=== PATIENT | female | born 1985 | race Caucasian/White ===

== ENCOUNTER 2016-09-05 16:02 | Emergency (ER) | payer MEDICAID ==
--- NOTE | 2016-09-10 16:16 | ER ---
ADMIT: 09/05/2016 RM/LOC: ER [facility] MR#: [id number] [place], [place] [id number] INNA LYNN [address] [place] [address] Emergency Room Report SEX: F AGE: 30 : 1985 DATE: 09/05/2016 ADDENDUM: CHIEF COMPLAINT: Abdominal pain. HISTORY OF PRESENT ILLNESS: This is a 30-year-old female who had this abdominal pain off and on for at least a couple weeks, may be for the last month. Today, she said she vomited once, she has been having some lower abdominal bloating and cramping just diffusely in the lower abdomen. Also, her breasts were tender. She took a test, but it was negative at home, so she comes to the ER wanting to know if she is . I did do a test, it is positive. Urine was checked, she has 1+ protein, otherwise negative. On palpating her abdomen, her pain is mostly suprapubic. I told her if she starts to develop increased pain, then to return to the ER, especially if it is one-sided. At this time, it sounds just more like a bloating feeling, so I am discharging her and have her follow up with [facility]. CLINICAL IMPRESSION: First-trimester . ANGEL Kaur / Get Vega MD / thai JOB #: [id number] CC: Get Vega MD, Attending Physician Jacqueline Fleming MD, Family Physician
== END 2016-09-05 16:11 | disposition home or self-care (01) ==
LOC: ER 16:02
DX: O99.89 Other specified diseases and conditions complicating pregnancy, childbirth and the puerperium (principal); R10.9 Unspecified abdominal pain; J45.909 Unspecified asthma, uncomplicated; Z3A.00 Weeks of gestation of pregnancy not specified

== ENCOUNTER → 2016-09-08 | Outpatient (CLI) | payer MEDICAID | END | disposition home or self-care (01) | DX: O20.9 Hemorrhage in early pregnancy, unspecified (principal); O99.89 Other specified diseases and conditions complicating pregnancy, childbirth and the puerperium; R10.9 Unspecified abdominal pain; Z3A.01 Less than 8 weeks gestation of pregnancy ==

== ENCOUNTER → 2016-09-22 | Outpatient (CLI) | payer MEDICAID | END | disposition home or self-care (01) | LOC: RAD.S 14:19 | DX: O20.9 Hemorrhage in early pregnancy, unspecified (principal); O36.80X9 Pregnancy with inconclusive fetal viability, other fetus; Z3A.08 8 weeks gestation of pregnancy ==